=== PATIENT | female | born 1960 | race Caucasian/White ===

== ENCOUNTER → 2018-05-20 | Outpatient (CLI) | payer OTHER ==
--- NOTE | 2018-05-28 20:55 | SLEEP ---
[address] [address] SLEEP STUDY REPORT Name: RACHAEL WICK Room: [facility]#: [id number] Admission: 05/20/18 Attend Phys: Tiffany Ying RN Discharge: Date of : 58 Report #: [id number] THIS REPORT FOR: //name// CC: JUDY Ying This study has been reviewed in its entirety by a board certified sleep specialist DATE OF SERVICE: 05/20/2018 The patient is 57 years old who weighs 182 pounds and is 5 feet 8 inches tall with a BMI of 27.6. The patient's Porum score was 6. The patient underwent home sleep study performed by [facility]. Total recording time was 507.6 minutes. During the night of study, the patient had only 3 obstructive apneas, no central or mixed apneas and 76 hypopneas. The patient's apnea-hypopnea index was 9.3 per hour. No supine sleep seen. Nocturnal oximetry study revealed an average oxygen saturation of 90%, lowest of 84%. 197 minutes were spent at oxygen saturation of less than 90%. EKG monitoring revealed mean heart rate of 61 beats per minute with a maximum of 87 beats per minute. IMPRESSION: 1. Mild sleep apnea-hypopnea syndrome with an AHI of 9.3 per hour. 2. Nocturnal hypoxia secondary to combination of sleep apnea and hypoventilation. RECOMMENDATIONS: 1. The patient has only mild sleep apnea. I would recommend weight loss as the initial form of treatment. 2. If the patient remains clinically symptomatic despite weight loss, then consider treatment of the patient's sleep apnea either with an oral appliance as recommended by the dentist versus a trial of CPAP titration. 3. Avoid PIE BAKER depressants. 4. Cautioned regarding driving until symptoms of sleep apnea has resolved with [place] [address] SLEEP STUDY REPORT Name: RACHAEL WICK Room: [facility]#: [id number] Admission: 05/20/18 Attend Phys: Tiffany Ying RN Discharge: Date of : 58 Report #: [id number] 5. Consider ruling out any cardiac or pulmonary etiologies of nocturnal hypoxia as well. <ELECTRONICALLY SIGNED> By: Wood Mathew MD 05/28/182054 [id number] 1956Aeffie Mathew MD /nt
== END ==
LOC: M.SLEEPLAB 16:00
DX: G47.30 Sleep apnea, unspecified (principal); R09.02 Hypoxemia; G47.9 Sleep disorder, unspecified; R53.83 Other fatigue